=== PATIENT | male | born 1970 | race Native Hawaiian/Other Pacific Islander ===

== ENCOUNTER 2017-01-26 06:40 | Day surgery (SDC) | payer BC ==
[2017-01-26] MEDS ORDERED: Sodium Chloride 0.9% 1000 ML 1,000 ML ONE (07:11)
[2017-01-26] MEDS ORDERED: XYLOCAINE 1% HCL 20 ML MDV ONE (07:12)
[2017-01-26 09:46] VITALS: BP 110/50; PULSE 58; O2SAT 97
--- NOTE | 2017-01-26 11:35 | HP ---
DATE: 01/26/17 ADMISSION DIAGNOSIS: 1. CYST LEFT CHEEK. ANTICIPATED PROCEDURE: 1. Excision under local. He does not desire to have any sedation. PAST MEDICAL HISTORY: ALLERGIES: NICKEL AND COBAN. CURRENT MEDICATIONS: Levothyroxine, hydrocortisone, Percocet, lorazepam. SURGERIES: Broken jaw, lumbar, thoracic cervical fusion. SOCIAL HISTORY: Negative. FAMILY HISTORY: Negative. REVIEW OF SYSTEMS: Back disease. PHYSICAL EXAMINATION: Vital signs normal. CHEST: Clear. COR: Regular. IMPRESSION: 1. A 1.5 cm lesion left cheek. PLAN: Excision.
--- NOTE | 2017-01-26 11:58 | OP ---
SURGERY DATE/TIME: 01/26/2017 0855 PREOPERATIVE DIAGNOSIS: 2 cm left facial lesion. POSTOPERATIVE DIAGNOSIS: 2 cm left facial lesion. PROCEDURE: Excision of 2 cm facial cyst with closure. SURGEON: Kristopher Moe M.D. ANESTHESIA: Local. COMPLICATIONS: None. CONDITION: Stable. INDICATION: A patient requiring removal of a cyst on the face. DESCRIPTION OF PROCEDURE: Routine prep and drape. 1% Lidocaine. Elliptical incision of skin. A 2 cm cyst with the cyst wall totally removed. Hemostasis obtained with pin point electrocautery with settings of 16 meticulously. There was no suggestion of facial muscle movement although we were in the general area. The patient tolerated the procedure satisfactorily.
== END 2017-01-26 09:45 | disposition home or self-care (01) ==
LOC: SDC 06:40
PROVIDERS: ATTEND Surgery
PROC: 0HB1XZX Excision of Face Skin, External Approach, Diagnostic (ICD-10-PCS; principal; 2017-01-26)
DX: L98.9 Disorder of the skin and subcutaneous tissue, unspecified (principal)
CPT/HCPCS: 36415

== ENCOUNTER 2018-09-06 06:39 | Day surgery (SDC) | payer BC, MEDICARE ==
--- NOTE | 2018-09-05 10:54 | HP ---
DATE OF SURGERY: 09/06/2018 ADMISSION DIAGNOSES: 1) Lesion right hand. 2) Biopsy of muscle left calf. ANTICIPATED PROCEDURE: Excision of lesion right hand and muscle biopsy. HISTORY OF PRESENT ILLNESS: Patient has elevated CPK, presents for calf muscle biopsy and also lesion right hand. PAST MEDICAL HISTORY: ALLERGIES: NICKEL. MEDICATIONS: Levothyroxine, lorazepam, zolpidem. PAST SURGICAL HISTORY: Fusion surgery. SOCIAL HISTORY: Negative. FAMILY HISTORY: Negative. REVIEW OF SYSTEMS: Hypothyroidism controlled. Hypertension. Cervical fusion. PHYSICAL EXAMINATION: VITAL SIGNS: Normal. CHEST: Clear. COR: Regular. IMPRESSION: 1) Lesion right hand. 2) Left calf muscle biopsy. PLAN: Excision of lesion right hand and muscle biopsy.
[2018-09-06] MEDS ORDERED: DIPRIVAN 200 MG/20 ML IV ONE (06:40)
[2018-09-06] MEDS ORDERED: Versed 2 MG/2 ML Injection IV ONE (06:40)
[2018-09-06] MEDS ORDERED: SUBLIMAZE 100 MCG/2 ML IV ONE (06:40)
[2018-09-06] MEDS ORDERED: Sensorcaine 0.25% 10 ML ONE (07:18)
[2018-09-06] MEDS ORDERED: Lactated Ringers 1,000 ML IV ONE (07:18)
[2018-09-06] MEDS ORDERED: Lactated Ringers 1,000 ML IV SCH (07:30)
[2018-09-06] MEDS ORDERED: SUBLIMAZE 100 MCG/2 ML ONE ×2 (10:24→10:44)
--- NOTE | 2018-09-06 10:33 | OP ---
SURGERY DATE/TIME: 09/06/2018 0932 PREOPERATIVE DIAGNOSES: 1) Muscle weakness and elevated CPK. 2) Skin lesion right hand. POSTOPERATIVE DIAGNOSES: 1) Muscle weakness and elevated CPK. 2) Skin lesion right hand. PROCEDURES: 1) Left calf muscle biopsy. 2) Excision skin lesion 1 cm right hand with closure. SURGEON: Kristopher Moe M.D. ANESTHESIA: MAC. COMPLICATIONS: None. CONDITION: Stable. INDICATION: Patient with above stated disorder. DESCRIPTION OF PROCEDURE: Taken to surgery. MAC sedation provided. 1% lidocaine. Skin incision fci down the distal left leg on the medial aspect. The gastrocnemius muscle was isolated. The fascia was opened. A 2 cm long and 1 cm wide and 1 cm thick area was taken with electrocautery. Hemostasis satisfactory. Fascia approximated with 2-0 Vicryl. Skin closed with 4-0 Vicryl, Steri-Strips, sterile dressing compressive. The patient tolerated the procedure satisfactorily. Skin lesion was excised from the hand and closed with 4-0 Prolene. The patient tolerated the procedure satisfactorily.
[2018-09-06 11:50] VITALS: BP 129/82; PULSE 69; O2SAT 97
== END 2018-09-06 12:00 | disposition home or self-care (01) ==
LOC: SDC 06:39
PROVIDERS: ATTEND Surgery
DX: L57.0 Actinic keratosis (principal); M62.81 Muscle weakness (generalized); R94.30 Abnormal result of cardiovascular function study, unspecified; L98.9 Disorder of the skin and subcutaneous tissue, unspecified; E03.9 Hypothyroidism, unspecified; I10 Essential (primary) hypertension; Z79.899 Other long term (current) drug therapy
CPT/HCPCS: 94250; J2250; J2704; J3010